=== PATIENT | male | born 1990 ===

== ENCOUNTER 2018-01-04 15:24 | Emergency (ER) | payer OTHER ==
[2018-01-04 15:36] VITALS: O2SAT 98
--- NOTE | 2018-01-04 16:46 | ED PDOC ---
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 He reports that the pain was unrelieved by ibuprofen which he last took at 10 am. Patient notes that a few weeks ago he was seen by a doctor in [facility] who prescribed him a nasal spray which offered him no relief and his symptoms persisted. Denies fevers, chills, cough, nausea, vomiting, abdominal pain, chest pain, ear pain, throat pain. No recent travel, no sick contacts. Of note: Patient reports that he has no history of similar headache. Denies photophobia, phonophobia, neck pian, neck stiffness. NO PMD Past Medical History Reviewed: Historical Data, Nursing Documentation, Vital Signs Vital Signs: Last Vital Signs Temp 99.6 F 01/04/18 15:33 Pulse 78 01/04/18 15:33 Resp 16 01/04/18 15:33 BP 135/84 01/04/18 15:33 Pulse Ox 98 01/04/18 15:33 - Medical History PMH: No Chronic Diseases - Surgical History Surgical History: No Surg Hx - Family History Family History: States: Unknown Family Hx - Social History Current smoker - smoking cessation education provided: No Alcohol: None Drugs: Denies - Home Medications Home Medications: Ambulatory Orders Medication Instructions Recorded Acetaminophen [Acetaminophen 8 650 mg PO Q8 PRN #21 tablet.er 01/04/18 Hour] Divalproex [Depakote ER] 500 mg PO BID #60 tab 01/04/18 - Allergies Allergies/Adverse Reactions: Allergies Allergy/AdvReac Type Severity Reaction Status Date / Time No Known Allergies Allergy Verified 01/04/18 15:33 Review of Systems Constitutional: Negative for: Fever, Chills Eyes: Negative for: Other (photophobia and phonophobia) ENT: Negative for: Ear Pain, Throat Pain Cardiovascular: Negative for: Chest Pain Respiratory: Negative for: Cough Gastrointestinal: Negative for: Nausea, Vomiting Musculoskeletal: Negative for: Neck Pain (no neck stiffness) Physical Exam - Reviewed Nursing Documentation Reviewed: Yes Vital Signs Reviewed: Yes - Physical Exam Comments: GENERAL APPEARANCE: Patient is awake, alert, oriented x 3, in no acute distress , resting comfortably. SKIN: Warm, dry; (-) cyanosis; (-) rash. HEAD: (-) scalp swelling or tenderness, (-) temporal artery tenderness. EYES: (-) conjunctival pallor, (-) scleral icterus. ENMT: (-) sinus tenderness; mucous membranes are moist, b/l inferior turbine swelling and erythema to nares, TM's non-bulging, non-erythematous; uvula midline, no exudate, no erythema . . NECK: (-) tenderness, (-) stiffness, (-) meningismus, (-) lymphadenopathy. CHEST AND RESPIRATORY: (-) rales, (-) rhonchi, (-) wheezes; breath sounds equal bilaterally. HEART AND CARDIOVASCULAR: (-) irregularity; (-) murmur, (-) gallop. ABDOMEN AND GI: Soft; (-) tenderness. EXTREMITIES: (-) deformity. NEURO AND PSYCH: Mental status as above. traffic signal mechanic: Pupils equal and reactive; EOMI ; (-) facial asymmetry; tongue and uvula midline. Strength and DTRs symmetric. - Laboratory Results Result Diagrams: 01/04/18 17:09 01/04/18 17:09 - ECG O2 Sat by Pulse Oximetry: 98 (RA) Pulse Ox Interpretation: Normal Medical Decision Making Medical Decision Makin Initial Impression 27 year old male presenting with headache and nasal congestion Initial Plan: * CT Head w/o Contrast to r/o intracranial abnormality. * Claritin 10 mg PO * Tylenol 650 mg PO * Reevaluation 1656 Date of service: 01/04/2018 PROCEDURE: CT HEAD WITHOUT CONTRAST. HISTORY: headache x1 month COMPARISON: None available. TECHNIQUE: Axial computed tomography images were obtained through the head/brain without intravenous contrast. Radiation dose: Total exam DLP = 770.52 mGy-cm. This CT exam was performed using one or more of the following dose reduction techniques: Automated exposure control, adjustment of the mA and/or kV according to patient size, and/or use of iterative reconstruction technique. FINDINGS: HEMORRHAGE: No intracranial hemorrhage. BRAIN: There are prominent enlarged cortical veins in the left frontal periventricular white matter draining into the superior sagittal sinus. Montes-white matter differentiation is preserved. There is no mass, mass effect or abnormal extra- axial fluid collection. There is no territorial infarction. The midline sagittal structures are normal. VENTRICLES: The ventricles are normal in size, shape and configuration. CALVARIUM: The skull base and calvarium are normal. PARANASAL SINUSES: Predominantly clear. MASTOID AIR CELLS: Predominantly clear. OTHER FINDINGS: None. IMPRESSION: Enlarged cortical veins in the left frontal periventricular white matter draining in the superior sagittal sinus. Findings could be related to developmental venous anomaly however AVM cannot be excluded and cavernous angioma cannot be excluded. Cortical vein thrombosis is also a differential consideration. MRI of the brain without and with intravenous contrast and MR venogram are recommended for further evaluation. Important findings were discussed with Whintey David in the ER on 2017 at 4:55 p.m. MRI brain with and without contrast and MR Venogram ordered. IV access established. CBC, CMP, PTT, PT/INR ordered. On re-evaluation patient resting comfortably. No additional complaints at present. 1820 Labs reviewed and grossly unremarkable. Patient resting comfortably on re-evaluation awaiting MRI evaluation. No additional complaints at present. Headache currently rated 5/10. 1845 Patient in MRI. 2014 EXAM: MR Head Without And With Intravenous Contrast CLINICAL HISTORY: 27 years old, male; Pain; Headache; Headache not specified; Patient HX: Pat C/O of frontal headache associated with nasal congestion for 3/4 weeks. Neg trauma; Additional info: Headache x1 month TECHNIQUE: Magnetic resonance images of the head/brain without and with intravenous contrast in multiple planes. CONTRAST: 14 mL of OMNISCAN administered intravenously. COMPARISON: CT - HEAD W/O CONTRAST 2018-01-04 16:33 FINDINGS: Brain: Arteriovenous malformation with several flow voids with a nidus approximately 2-3 cm in the parasagittal left frontal lobe. Prominent draining vein into the superior sagittal sinus is seen. No edema. No mass effect. No intracranial hemorrhage. Ventricles: Appropriate for patient's age. Bones/joints: Unremarkable as visualized. Sinuses: No acute sinusitis. Mastoid air cells: No mastoid effusion. Orbits: Intact. IMPRESSION: Left parasagittal frontal lobe arteriovenous malformation. No intracranial hemorrhage. Preliminary interpretation is based on receipt of 483 images. A final report will be issued subsequently. We appreciate the opportunity to be involved in this patient's care. Thank you for allowing us to participate in the care of your patient. Dictated and Authenticated by: Walter Peters MD 01/04/2018 8:11 PM Eastern Time ( [place] & [place]) Consult placed to neurology track repair person, Dr Shea. [address] Shea, who recommends placing the patient on Depakote 500mg PO daily and outpatient follow up with both herself and neurosurgery, Dr Ramsay. Consult placed to Dr Ramsay, neurosurgery track repair person. [address] Ramsay 2119 Case discussed with neurosurgery track repair person, Dr Ramsay, who is in agreement with current plan. Recommends no further intervention needs to be taken place in ED. 2129 Results and plan for discharge discussed with patient using commercial manager # [id number]. Patient demonstrated understanding of results and necessity of close follow up within a week. Advised to avoid NSAID use for management of headache and to use prescribed Tylenol instead. On re-evaluation, patient reports improvement of symptoms and offers no additional complaints. On exam, patient remains AAOx3, in no acute distress. On exam, neck is supple, lungs CTA, cardiac RRR, abdomen is soft and non-tender, neuro exam shows no focal findings. VSS, stable for discharge. Diagnostic results d/w the patient in great detail. Dx of headache, AVM d/w the patient. Patient was observed in the ED for 6+ hours with no evidence of neurological deterioration. Based on history, exam and diagnostic results plan will be for outpatient neurology and neurosurgery follow up. Advised to follow up with referred providers in 1-2 days without fail. Advised to take medication as prescribed. Return to the emergency room at any time for any new or worsening symptoms. Patient states he fully agrees with and understands discharge instructions. States that he agrees with the plan and disposition. Verbalized and repeated discharge instructions and plan. I have given the patient opportunity to ask any additional questions. Documented by Katharine Mera acting as a scribe for Whitney David PA-C. All medical record entries made by the Scribe were at my direction and personally dictated by me. I have reviewed the chart and agree that the record accurately reflects my personal performance of the history, physical exam, medical decision making, and the department course for this patient. I have also personally directed, reviewed, and agree with the discharge instructions and disposition. Disposition - Clinical Impression Clinical Impression: AVM (arteriovenous malformation), Headache, Nasal congestion - Patient ED Disposition Is Patient to be Admitted: No Counseled Patient/Family Regarding: Studies Performed, Diagnosis, Need For Followup, Rx Given - Disposition Referrals: Chris Shea MD [Medical Doctor] - Mateo Ramsay MD [Staff Provider] - Disposition: Routine/Home Disposition Time: 21:35 Condition: FAIR Additional Instructions: La atencin mdica de emergencia que recibi hoy estaba dirigida a valorie sntomas agudos. Si le prescribieron algn medicamento, llnelo y tome segn las indicaciones. Valorie sntomas pueden tardar varios gonzalez en resolverse. Regrese al Departamento de Emergencia si valorie sntomas empeoran, no mejoran o si tiene alg n otro problema. Comunquese con velásquez mdico en 2 gonzalez para tomas reevaluacin y seguimiento / o llame a soraya de los mdicos / clnicas a los que peters referido y que figura en el formulario de Informacin de visitas del paciente que se incluye en velásquez paquete de oleg. Traiga todos los documentos que recibi al momento del oleg junto con los medicamentos que est tomando en velásquez visita de seguimiento. Nuestro tratamiento no puede reemplazar la atencin mdica en curso por parte de un proveedor de atencin primaria (PCP) fuera del departamento de emergencias. Prescriptions: Acetaminophen [Acetaminophen 8 Hour] 650 mg PO Q8 PRN #21 tablet.er PRN Reason: Headache Divalproex [Depakote ER] 500 mg PO BID #60 tab Instructions: Arteriovenous Malformations in the Brain, Headache, Adult (DC) Forms: [facility] (Surinamese) Print Language: [place] - POA Present On Arrival: None Results - Lab Results Lab Results: 01/04/18 01/04/18 01/04/18 17:09 17:09 17:09 WBC 6.6 RBC 4.89 Hgb 15.4 Hct 44.3 MCV 90.4 MCH 31.4 H MCHC 34.7 RDW 12.8 Plt Count 272 MPV 8.8 Neut % (Auto) 58.4 Lymph % (Auto) 26.1 [place] % (Auto) 10.4 H Eos % (Auto) 4.8 H Baso % (Auto) 0.3 Neut # (Auto) 3.9 Lymph # (Auto) 1.7 [place] # (Auto) 0.7 Eos # (Auto) 0.3 Baso # (Auto) 0.0 PT 12.7 INR 1.1 APTT 35.7 Sodium 140 Potassium 4.1 Chloride 101 Carbon Dioxide 27 Anion Gap 16 BUN 12 Creatinine 0.8 Est GFR ( Amer) > 60 Est GFR (Non-Af Amer) > 60 Random Glucose 107 Calcium 9.7 Total Bilirubin 0.5 AST 27 ALT 38 Alkaline Phosphatase 53 Total Protein 7.8 Albumin 4.6 Globulin 3.2 Albumin/Globulin Ratio 1.4
--- NOTE | 2018-01-04 16:58 | CT ---
Date of service: 01/04/2018 PROCEDURE: CT HEAD WITHOUT CONTRAST. HISTORY: headache x1 month COMPARISON: None available. TECHNIQUE: Axial computed tomography images were obtained through the head/brain without intravenous contrast. Radiation dose: Total exam DLP = 770.52 mGy-cm. This CT exam was performed using one or more of the following dose reduction techniques: Automated exposure control, adjustment of the mA and/or kV according to patient size, and/or use of iterative reconstruction technique. FINDINGS: HEMORRHAGE: No intracranial hemorrhage. BRAIN: There are prominent enlarged cortical veins in the left frontal periventricular white matter draining into the superior sagittal sinus. Montes-white matter differentiation is preserved. There is no mass, mass effect or abnormal extra-axial fluid collection. There is no territorial infarction. The midline sagittal structures are normal. VENTRICLES: The ventricles are normal in size, shape and configuration. CALVARIUM: The skull base and calvarium are normal. PARANASAL SINUSES: Predominantly clear. MASTOID AIR CELLS: Predominantly clear. OTHER FINDINGS: None. IMPRESSION: Enlarged cortical veins in the left frontal periventricular white matter draining in the superior sagittal sinus. Findings could be related to developmental venous anomaly however AVM cannot be excluded and cavernous angioma cannot be excluded. Cortical vein thrombosis is also a differential consideration. MRI of the brain without and with intravenous contrast and MR venogram are recommended for further evaluation. Important findings were discussed with Whitney David in the ER on 01/04/2018 at 4:55 p.m.
[2018-01-04 17:12] LABS: BASO % 0.3 % (0.0-2.0); EOS # 0.3 K/uL (0.0-0.7); EOS % 4.8 % (0.0-4.0); HEMOGLOBIN 15.4 g/dL (12.0-18.0); LYMPH # 1.7 K/uL (1.0-4.3); LYMPH % 26.1 % (20.0-40.0); MEAN CELL VOLUME 90.4 fl (80.0-94.0); MEAN CORPUSCULAR HEMOGLOBIN 31.4 pg (27.0-31.0); MEAN CORPUSCULAR HGB CONC 34.7 g/dL (33.0-37.0); MEAN PLATELET VOLUME 8.8 fl (7.2-11.7); MONO # 0.7 K/uL (0.0-0.8); MONO % 10.4 % (0.0-10.0); NEUT # 3.9 K/uL (1.8-7.0); NEUT % 58.4 % (50.0-75.0); RBC 4.89 Mil/uL (4.40-5.90); RED CELL DISTRIBUTION WIDTH 12.8 % (11.5-14.5); WHITE BLOOD COUNT 6.6 K/uL (4.8-10.8)
[2018-01-04 18:02] LABS: ALB/GLOB RATIO 1.4 (1.0-2.1); ALBUMIN 4.6 g/dL (3.5-5.0); ALT/SGPT 38 U/L (21-72); AST/SGOT 27 U/L (17-59); BLOOD UREA NITROGEN 12 mg/dl (9-20); CALCIUM 9.7 mg/dL (8.4-10.2); GFR AFRICAN-AMERICAN > 60; GFR NON-AFRICAN AMERICAN > 60
[2018-01-04 18:09] LABS: INR 1.1; PROTHROMBIN TIME 12.7 Seconds (9.8-13.1)
[2018-01-04 18:12] LABS: PARTIAL THROMBOPLASTIN TIME 35.7 Seconds (25.6-37.1)
[2018-01-04] MEDS ORDERED: Gadodiamide 287 MG/ML VIAL (15ML) IV ONE (18:26)
[2018-01-04 21:27] VITALS: BP 129/77; PULSE 79; RESP 15; TEMP 98.7
--- NOTE | 2018-01-05 12:31 | MRI ---
Date of service: 01/04/2018 PROCEDURE: MRI BRAIN WITH AND WITHOUT CONTRAST HISTORY: headache x1 month COMPARISON: Comparison is made with the previous CT dated 01/04/2018 TECHNIQUE: Multiplanar, multisequence MR images of the brain were obtained with and without intravenous contrast enhancement. FINDINGS: HEMORRHAGE: None. The T2 GRE images demonstrate no evidence of recent or old intraparenchymal hemorrhage. There is no evidence of cavernous hemangioma. DWI: No evidence of an acute or early subacute infarction. BRAIN PARENCHYMA: There are prominent vessels draining with prominent vein to the superior sagittal sinus noted in the left frontal parasagittal lobe. There is no convincing evidence of nidus. These findings are suggestive of developmental venous anomaly. No atrophy or chronic microvascular ischemic changes. ENHANCEMENT: The above-mentioned left frontal presumed developmental venous anomaly demonstrate prominent enhancement and appears more conspicuous in the postcontrast images. Otherwise no abnormal intracranial enhancement. VENTRICLES: Unremarkable. No hydrocephalus. CRANIUM: Unremarkable. ORBITS: Grossly unremarkable. PARANASAL SINUSES/MASTOIDS: Clear VASCULAR SYSTEM: Skull base flow voids intact. OTHER FINDINGS: None . IMPRESSION: Prominent vessels with large draining vein to the superior sagittal sinus noted in the parasagittal left frontal lobe most consistent with developmental venous anomaly. No MRI evidence of AV malformation or dural sinus thrombosis. No evidence of acute intracranial hemorrhage mass effect or midline shift.
== END 2018-01-04 21:27 | disposition home or self-care (01) ==
LOC: H.ER 15:24 → MERGE 15:24 → H.ER 21:27
DX: Q28.2 Arteriovenous malformation of cerebral vessels (principal); R51 Headache; R09.81 Nasal congestion
CPT/HCPCS: 70450; 70553; 80053; 85025; 85610; 85730; 99285; A9579